=== PATIENT | female | born 1950 | race Caucasian/White ===

== ENCOUNTER 2018-10-08 05:23 | Day surgery (SDC) | payer OTHER ==
[~2018-10-08] VITALS: Ht 154.9 cm; Wt 81.7 kg
[~2018-10-08 05:23] MED LIST: ASPIRIN81 M2 PO; CENTRUM SILVER1 EAC4 PO; CLARITIN10 MG PO; FOLIC ACID1 MG PO; HYDROXYCHLOROQ200 M1 PO; LOSARTAN-HCTZ1 EACH PO; METHOTREXATE 22.5 MG PO; NAPROSYN500 MG PO; OMEPRAZOLE 20 M20 M1 PO; PREMARIN0.3 MG PO; PROAIR HFA8.5 GM INH; SINGULAIR 10 MG10 M1 PO; SYNTHROID50 MCG PO
[2018-10-08 07:29] VITALS: BP 155/67
--- NOTE | 2018-10-12 06:16 | O ---
[facility] [place] [address] OPERATIVE REPORT Name: MORGAN DOUGHERTY Room #: DEP [facility] M.R.#: [id number] Admission: 10/08/18 ������������������ Attend Phys: Jb Paniagua MD Discharge: 10/08/18 ������������������ Date of : 52 Report #: [id number] THIS REPORT FOR: //name// CC: Shree Turcios Physician staff PAIGE Paniagua DATE OF SERVICE: 10/08/2018 PREOPERATIVE DIAGNOSIS: Tumor of left lower lid and cheek. POSTOPERATIVE DIAGNOSIS: Tumor of left lower lid and cheek. PROCEDURE: Excision of lesion of left lower lid and cheek with frozen section, control of margins and myocutaneous flap repair of defect. SURGEON: Jb Paniagua MD. RIVETER HELPER: None. ANESTHESIA: MAC. COMPLICATIONS: None. INDICATIONS FOR SURGERY: This pleasant 68-year-old woman has a nodular ulcerative mass in her left lower lid, destroying the lid margin, extending on to her cheek that appears to be a basal cell carcinoma. The lesion has not been previously biopsied. She presents today for excision of the lesion with frozen sections and subsequent reconstruction of that defect. Informed consent was obtained to include but not limited to the potential risk for loss of vision, bleeding, infection, failure to improve the problem, the potential need for further surgery or treatment. DESCRIPTION OF PROCEDURE: The patient was taken to the operating room where 2% Xylocaine with epinephrine mixed with equal parts 0.75% Marcaine with Wydase was administered transcutaneously and transconjunctivally to the left lower lid, the left lateral canthus, the left infratemporal fossa and the left cheek. The patient was subsequently prepped and draped in the usual sterile fashion. A fine-tip skin marking pen was then utilized to outline the lesion including 1-2 mm of normal appearing tissue around its margins. The incisions were then made perpendicularly across the eyelid margin and drawn to a point in the premalar space. Hemostasis was achieved in the field with diligent pinpoint monopolar cautery. The specimen was then oriented on a drawing for the awaiting pathologist. She snap froze that specimen and found that the margins appeared [address] [address] OPERATIVE REPORT Name: MORGAN DOUGHERTY Room #: DEP [facility] M.R.#: [id number] Admission: 10/08/18 ������������������ Attend Phys: Jb Paniagua MD Discharge: 10/08/18 ������������������ Date of : 52 Report #: [id number] to be clear, but she could not assess what the underlying histopathologic nature of the lesion was. She thought there was a possibility it may not even be neoplastic and could be inflammatory or autoimmune. With the knowledge that the lesion was completely extirpated, reconstruction was undertaken. A myocutaneous flap was developed laterally with a secondary defect of 5 x 3 cm. That flap was then rotated into position and secured with multiple interrupted 5-0 Vicryl sutures deep. The tarsal plate was reapproximated with interrupted 5-0 Vicryl sutures. The eyelid margin was reapproximated with interrupted 7-0 Vicryl sutures. The subcutaneous structures and the skin were then closed with interrupted Vicryl sutures deep and then 6-0 plain gut sutures more superficially completely closing the relaxing incision made to close the flap. The patient was subsequently transported to the recovery area having tolerated the procedures well with no anesthetic or operative complications being noted. ��������������������������������������������� <ELECTRONICALLY SIGNED> ���������������������������������������� By: Jb Paniagua MD ��������������������������������������������� 10/12/18 0616 [id number] [id number] Jb Paniagua MD /nt
--- NOTE | 2018-10-12 10:06 | PATH ---
[facility] [place] [address] PATHOLOGY RPT PROCEDURE Name: MORGAN DOUGHERTY Room #: DEP [facility] M.R.#: [id number] ������������������ Admission: 10/08/18 ������������������ Date of : 52 Discharge: 10/08/18 Report #: [id number] Path Case #: [id number] [facility] Accession Number: [id number] . 01 Material submitted: . LEFT LOWER LID LESION . 01 Clinical history: . Tumor left lower lid . 02 Diagnosis: Skin, left lower lid lesion, excision: - Non-necrotizing granulomatous inflammation, see comment. - Sebaceous hyperplasia. - Mild focal hyperkeratosis along with reactive changes. - Moderate to marked chronic inflammation surrounding glands / ducts. - Negative for malignancy. - Margins unremarkable. . (IUV:mml; 10/09/2018) QLM/10/12/2018 . 02 Comment: Multiple recuts are examined. Non-necrotizing granulomatous inflammation is identified on the deeper levels. AFB and GMS-Fungal will be attempted since much of the tissue is lost. Foreign body or polarizable material is not identified on routine mircoscopy. The differential diagnosis includes several infections including but not limited to mycobacteria, fungal organisms, bacterial infections including treponemal infections, toxins, foreign-body type reactions, drug-induced reaction as well as sarcoidosis. The overlying squamous epithelium shows pseudo-epitheliomatous changes and hyperkeratosis. Please correlate clinically. . The special stains will be reported in an addendum to follow. . . 02 Electronically signed: . Jackie Loredo MD, Pathologist NPI- [id number] . 01 Gross description: . The specimen is received fresh from the OR labeled with the patient's name, and "left lower lid lesion" consists of an inverted triangular specimen measuring 1 x 0.6 x 0.5 cm. The specimen is oriented as lateral, inferior and medial, these are assigned 3:00, 6:00, and 9:00. The 12:00 represents the superior end of the specimen and also a lesion identified grossly. The lesion measures approximately 0.4 cm. It grossly appears at [address] [address] PATHOLOGY RPT PROCEDURE Name: MORGAN DOUGHERTY Room #: DEP [facility] M.R.#: [id number] ������������������ Admission: 10/08/18 ������������������ Date of : 52 Discharge: 10/08/18 Report #: [id number] Path Case #: [id number] least 1 mm away from the lateral and medial margins (3:00 and 9:00, respectively). At this point the specimen is inked as follows: the 3:00 to 6:00 is inked black, the 6:00 to 9:00 is inked blue for the inferior half and green for the superior half. The deep margin is additionally inked with red ink. At this point the specimen is serially sectioned and entirely submitted for frozen section as FSA1, subsequently submitted for permanent sections as A1. (IUV:brian; 10/08/2018) . FROZEN SECTION DIAGNOSIS (Jackie Loredo MD) . FSA1, Skin, left lower lid lesion, excision: - Margins free of invasive carcinoma. . These findings are discussed with Dr. Jb Paniagua in OR6 at [facility] and a written report is placed in the patient's chart. (IUV:brian; 10/08/2018) . Frozen section performed at [facility], [address] [place], [place] [address], [place] [address]. . /S . 02 Pathologist provided ICD-10: L85.8, L08.9 . 02 CPT . 059201, 950503 Specimen Comment: A courtesy copy of this report has been sent to Specimen Comment: [phone], . Specimen Comment: Report sent to / DR MARTINS Performed at: [id number] [facility] [address], [place], [place] [id number] MD Cheo Tristan MD Phone: [phone] Performed at: [address] [id number] MD Jackie Loredo MD Phone: [phone]
== END 2018-10-08 10:35 | disposition home or self-care (01) ==
LOC: OR 05:23 → TBA 05:23 → OR 10:21
DX: H01.8 Other specified inflammations of eyelid (principal); L57.0 Actinic keratosis; L73.8 Other specified follicular disorders; L85.8 Other specified epidermal thickening; I10 Essential (primary) hypertension; J45.909 Unspecified asthma, uncomplicated; K21.9 Gastro-esophageal reflux disease without esophagitis; Z90.710 Acquired absence of both cervix and uterus; Z90.49 Acquired absence of other specified parts of digestive tract; Z96.652 Presence of left artificial knee joint; Z98.890 Other specified postprocedural states; Z79.82 Long term (current) use of aspirin
CPT/HCPCS: 50010; 50101; 50386; 50398; 51636; 56528; 56531; 62110; 62850; 70005